=== PATIENT | male | born 1970 | race Caucasian/White ===

== ENCOUNTER 2016-11-13 17:27 | Inpatient (IN) | payer MEDICAID ==
[~2016-11-13] VITALS: Ht 182.9 cm; Wt 108.2 kg
[~2016-11-13 17:27] MED LIST: COLC0.6T69 PO; LURA40 PO; MIRT15 PO; PRED20 PO; TAMS0.4C32 PO
[2016-11-13] MEDS ORDERED: INFLUENZA VIRUS VACCINE QVS 2016-17 (3YR+)/PF 60 MCG/0.5 ML SYRINGE IM ONE (18:00)
[2016-11-13 18:33] VITALS: BP 113/76
[2016-11-13 19:00] VITALS: BP 131/87
[2016-11-13] MEDS: NAPROXEN 500 MG TABLET PO PRN (20:18)
[2016-11-14 00:16] VITALS: BP 129/87
[2016-11-14] MEDS: NAPROXEN 500 MG TABLET PO PRN (01:22)
[2016-11-14 08:05] VITALS: BP 130/88
[2016-11-14] MEDS ORDERED: ONDANSETRON HCL 4 MG TABLET PO PRN (08:45)
[2016-11-14] MEDS ORDERED: MAG HYDROX/AL HYDROX/SIMETH ES 30 ML SUSPENSION UDCUP PO PRN (08:45)
[2016-11-14] MEDS ORDERED: CloNIDine HCL 0.1 MG TABLET PO PRN (08:45)
[2016-11-14] MEDS ORDERED: ALBUTEROL SULFATE HFA 90 MCG/PUFF 8 GM INHALER IH PRN (08:45)
[2016-11-14] MEDS ORDERED: MAGNESIUM HYDROXIDE SUSPENSION 30 ML UDCUP PO PRN (08:45)
[2016-11-14] MEDS ORDERED: BENZOCAINE/MENTHOL LOZENGE MM PRN (08:45)
[2016-11-14] MEDS ORDERED: IBUPROFEN 600 MG TABLET PO PRN (08:45)
[2016-11-14] MEDS ORDERED: PETROLATUM,WHITE 71 GM JELLY TP PRN (08:45)
[2016-11-14] MEDS ORDERED: LOPERAMIDE HCL 2 MG CAPSULE PO PRN (08:45)
[2016-11-14] MEDS ORDERED: ACETAMINOPHEN 325 MG TABLET PO PRN (08:45)
[2016-11-14] MEDS ORDERED: BACITRACIN 28.4 GM OINTMENT TP PRN (08:45)
[2016-11-14] MEDS: TAMSULOSIN HCL 0.4 MG CAPSULE PO SCH (09:00)
[2016-11-14 11:18] VITALS: BP 126/84
[2016-11-14] MEDS: HYDROCODONE/ACETAMINOPHEN 5-325 MG TABLET PO PRN (11:18)
[2016-11-14] MEDS: COLCHICINE 0.6 MG TABLET PO SCH (12:58)
[2016-11-15] MEDS: TAMSULOSIN HCL 0.4 MG CAPSULE PO SCH (09:00)
[2016-11-15] MEDS: COLCHICINE 0.6 MG TABLET PO SCH (09:00)
[2016-11-15] MEDS: FLUoxetine HCL 20 MG CAPSULE PO SCH (11:00)
[2016-11-15] MEDS ORDERED: HYDR-309 PO (15:52)
[2016-11-15] MEDS ORDERED: FLUO-191 PO (15:52)
[2016-11-15 18:47] LABS: APPEARANCE,URINE CLEAR (CLEAR); GLUCOSE, URINE (UA) NEGATIVE (NEGATIVE); KETONES,URINE NEGATIVE (NEGATIVE); LEUKOCYTE ESTERASE ,URINE NEGATIVE (NEGATIVE); OCCULT BLOOD,URINE NEGATIVE (NEGATIVE); PH,URINE 6.5 (5.0-8.0); PROTEIN,URINE NEGATIVE (NEGATIVE)
[2016-11-15 18:48] LABS: ADD UA MICROSCOPIC NO
[2016-11-15] MEDS: OLANZapine 5 MG TABLET PO SCH (21:00)
[2016-11-15] MEDS ORDERED: OLANZapine 5 MG TABLET ONE (23:35)
[2016-11-15] MEDS ORDERED: FLUoxetine HCL 20 MG CAPSULE ONE (23:35)
[2016-11-16 07:24] VITALS: BP 118/75
[2016-11-16 09:50] VITALS: BP 124/82
[2016-11-16] MEDS: PredniSONE 20 MG TABLET PO SCH ×3 (09:51→16:31)
[2016-11-16] MEDS: COLCHICINE 0.6 MG TABLET PO SCH (09:52)
[2016-11-16] MEDS: HYDROCODONE/ACETAMINOPHEN 5-325 MG TABLET PO PRN (09:52)
[2016-11-16] MEDS: DOXYCYCLINE 100 MG CAPSULE PO SCH ×2 (09:52→16:31)
[2016-11-16] MEDS: TAMSULOSIN HCL 0.4 MG CAPSULE PO SCH (09:52)
[2016-11-16] MEDS: FLUoxetine HCL 20 MG CAPSULE PO SCH (09:52)
[2016-11-16 10:52] VITALS: BP 119/76
[2016-11-16 16:00] VITALS: BP 130/64
[2016-11-16] MEDS: LORazepam 2 MG TABLET PO PRN (16:31)
[2016-11-16] MEDS: OLANZapine 5 MG TABLET PO SCH (20:34)
[2016-11-16] MEDS: ZOLPIDEM TARTRATE 10 MG TABLET PO PRN (21:01)
[2016-11-17 08:04] VITALS: BP 112/77
[2016-11-17] MEDS: TAMSULOSIN HCL 0.4 MG CAPSULE PO SCH (09:00)
[2016-11-17] MEDS: COLCHICINE 0.6 MG TABLET PO SCH (09:00)
[2016-11-17] MEDS: DOXYCYCLINE 100 MG CAPSULE PO SCH ×2 (09:28→17:06)
[2016-11-17] MEDS: PredniSONE 20 MG TABLET PO SCH ×3 (09:29→17:06)
[2016-11-17] MEDS: FLUoxetine HCL 20 MG CAPSULE PO SCH (09:29)
[2016-11-17] MEDS: LORazepam 2 MG TABLET PO PRN ×2 (09:29→17:06)
[2016-11-17] MEDS: ZOLPIDEM TARTRATE 10 MG TABLET PO PRN (20:27)
[2016-11-17] MEDS: OLANZapine 5 MG TABLET PO SCH (20:27)
[2016-11-18] VITALS (8 sets, daily range): BP systolic 108–116; BP diastolic 60–81
[2016-11-18] MEDS: HYDROCODONE/ACETAMINOPHEN 5-325 MG TABLET PO PRN ×2 (08:51→16:35)
[2016-11-18] MEDS: FLUoxetine HCL 20 MG CAPSULE PO SCH (08:51)
[2016-11-18] MEDS: DOXYCYCLINE 100 MG CAPSULE PO SCH ×2 (08:51→16:35)
[2016-11-18] MEDS: NAPROXEN 500 MG TABLET PO PRN (11:56)
[2016-11-18] MEDS: LORazepam 2 MG TABLET PO PRN (16:35)
[2016-11-18] MEDS ORDERED: LORazepam 2 MG/ML VIAL IM ONE (18:30)
[2016-11-18] MEDS ORDERED: HALOPERIDOL LACTATE 5 MG/ML VIAL IM ONE (18:30)
[2016-11-18] MEDS: OLANZapine 5 MG TABLET PO SCH (21:00)
[2016-11-19 06:57] VITALS: BP 113/70
[2016-11-19 08:04] VITALS: BP 124/76
[2016-11-19] MEDS: FLUoxetine HCL 20 MG CAPSULE PO SCH (08:42)
[2016-11-19] MEDS: DOXYCYCLINE 100 MG CAPSULE PO SCH (08:42)
[2016-11-19] MEDS ORDERED: OLAN5TAB2 PO (13:53)
== END 2016-11-19 14:44 | disposition home or self-care (01) | DRG 750 ==
LOC: B2S 18:26 → EDSTATUS 18:49 → B2S 11-14 11:29 → B3A 11-16 00:30
PROVIDERS: ADMIT Psychiatry & Neurology Child & Adolescent Psychiatry; ATTEND Psychiatry & Neurology Child & Adolescent Psychiatry
DX: F25.0 Schizoaffective disorder, bipolar type (principal); R45.851 Suicidal ideations; F15.20 Other stimulant dependence, uncomplicated; E55.9 Vitamin D deficiency, unspecified; F17.200 Nicotine dependence, unspecified, uncomplicated; G89.29 Other chronic pain; J44.9 Chronic obstructive pulmonary disease, unspecified; F60.3 Borderline personality disorder; K21.9 Gastro-esophageal reflux disease without esophagitis; M10.9 Gout, unspecified; M19.90 Unspecified osteoarthritis, unspecified site; N40.0 Benign prostatic hyperplasia without lower urinary tract symptoms; Z59.0 Homelessness; Z81.8 Family history of other mental and behavioral disorders; Z88.2 Allergy status to sulfonamides; Z71.51 Drug abuse counseling and surveillance of drug abuser; Z71.6 Tobacco abuse counseling; Z91.041 Radiographic dye allergy status; Z28.21 Immunization not carried out because of patient refusal
CPT/HCPCS: J1630; J2060

== ENCOUNTER 2017-02-08 20:17 | Inpatient (IN) | payer MEDICAID ==
[~2017-02-08] VITALS: Ht 182.9 cm; Wt 103.4 kg
[~2017-02-08 20:17] MED LIST changes: -COLC0.6T69 PO; +FLUO-191 PO; -LURA40 PO; -MIRT15 PO; +OLAN5TAB2 PO; -PRED20 PO; -TAMS0.4C32 PO
[2017-02-08 20:56] LABS: BASOPHILS # (AUTO) 0.04 K/uL (0.00-0.20); BASOPHILS % (AUTO) 0.5 % (0.0-2.0); EOSINOPHILS # (AUTO) 0.38 K/uL (0.00-0.70); EOSINOPHILS % (AUTO) 5.08 % (1.0-6.0); HEMOGLOBIN 13.4 g/dL (13.5-17.5); LYMPHOCYTES # (AUTO) 1.9 K/uL (1.0-4.8); LYMPHOCYTES % (AUTO) 24.7 % (22.0-44.0); MEAN CORPUSCULAR HEMOGLOBIN 27.8 pg (26.0-34.0); MEAN CORPUSCULAR HGB CONC 33.5 G/dL (31.0-37.0); MEAN CORPUSCULAR VOLUME 83 fL (80-100); MONOCYTES # (AUTO) 0.6 K/uL (0.1-1.0); MONOCYTES % (AUTO) 7.8 % (2.0-9.0); NEUTROPHILS # (AUTO) 4.6 K/uL (1.8-7.7); NEUTROPHILS % (AUTO) 61.8 % (40.0-70.0); PLATELET COUNT (AUTO) 459 K/uL (150-450); RED BLOOD CELL COUNT(AUTO) 4.82 MIL/uL (4.50-5.90); RED CELL DISTRIBUTION WIDTH 15.3 % (11.5-14.5); WHITE BLOOD COUNT (AUTO) 7.5 K/uL (4.5-11.0)
[2017-02-08 21:05] LABS: ANION GAP 8 mmol/L (8-16); CALCIUM, TOTAL 8.8 mg/dL (8.8-10.5); CARBON DIOXIDE 29 mmol/L (22-29); CHLORIDE 104 mmol/L (98-107); CREATININE 0.89 mg/dL (0.60-1.30); GLOMERULAR FILTR. RATE CALC > 60 mL/min (>60); POTASSIUM 3.8 mmol/L (3.5-5.1); SODIUM SERUM 141 mmol/L (136-145); UREA NITROGEN, BLOOD 12 mg/dL (7-18)
[2017-02-08 21:11] LABS: ALANINE AMINOTRANSFERASE 20 U/L (12-78); ALBUMIN 3.5 g/dL (3.4-5.0); ASPARTATE AMINOTRANSFERASE 20 U/L (15-37); TOTAL PROTEIN, SERUM 7.2 g/dL (6.4-8.2)
[2017-02-09] MEDS ORDERED: HALOPERIDOL 5 MG TABLET PO PRN (02:15)
[2017-02-09 14:23] VITALS: BP 135/76
[2017-02-09] MEDS ORDERED: -PHARMACY VACCINE NOTE- MISC ONE ×2 (14:45)
[2017-02-09] MEDS: NICOTINE 21 MG/24 HOUR PATCH TD SCH (15:06)
[2017-02-09 16:17] VITALS: BP 119/62
[2017-02-10 07:21] VITALS: BP 137/87
[2017-02-10 08:32] VITALS: BP 134/89
[2017-02-10] MEDS: NICOTINE 21 MG/24 HOUR PATCH TD SCH (08:52)
[2017-02-10] MEDS: LORazepam 2 MG TABLET PO PRN (11:46)
[2017-02-10] MEDS: FLUoxetine HCL 20 MG CAPSULE PO SCH (12:41)
[2017-02-10 16:14] VITALS: BP 135/77
[2017-02-10] MEDS: OLANZapine 5 MG TABLET PO SCH (20:50)
[2017-02-10] MEDS: ZOLPIDEM TARTRATE 10 MG TABLET PO PRN (21:14)
[2017-02-10] MEDS ORDERED: MAG HYDROX/AL HYDROX/SIMETH ES 30 ML SUSPENSION UDCUP PO PRN (22:00)
[2017-02-10] MEDS ORDERED: ONDANSETRON HCL 4 MG TABLET PO PRN (22:00)
[2017-02-10] MEDS ORDERED: BENZOCAINE/MENTHOL LOZENGE MM PRN (22:00)
[2017-02-10] MEDS ORDERED: LOPERAMIDE HCL 2 MG CAPSULE PO PRN (22:00)
[2017-02-10] MEDS ORDERED: TRIAMCINOLONE 0.1% 15 GM OINTMENT TP PRN (22:00)
[2017-02-10] MEDS ORDERED: ALBUTEROL SULFATE HFA 90 MCG/PUFF 8 GM INHALER IH PRN (22:00)
[2017-02-10] MEDS ORDERED: PETROLATUM,WHITE 71 GM JELLY TP PRN (22:00)
[2017-02-10] MEDS ORDERED: CloNIDine HCL 0.1 MG TABLET PO PRN (22:00)
[2017-02-10] MEDS ORDERED: BACITRACIN 28.4 GM OINTMENT TP PRN (22:00)
[2017-02-10] MEDS ORDERED: MAGNESIUM HYDROXIDE SUSPENSION 30 ML UDCUP PO PRN (22:00)
[2017-02-10] MEDS ORDERED: ACETAMINOPHEN 325 MG TABLET PO PRN (22:00)
[2017-02-11 06:30] VITALS: BP 130/75
[2017-02-11 08:35] VITALS: BP 120/77
[2017-02-11] MEDS: NICOTINE 21 MG/24 HOUR PATCH TD SCH (09:09)
[2017-02-11] MEDS: FLUoxetine HCL 20 MG CAPSULE PO SCH (09:09)
[2017-02-11] MEDS: CHOLECALCIFEROL (VIT D3) 1,000 UNITS TABLET PO SCH (09:09)
[2017-02-11] MEDS ORDERED: DICLOFENAC SODIUM 1% 100 GM GEL [2GM] TP PRN ×2 (09:15→19:00)
[2017-02-11 16:09] VITALS: BP 121/75
[2017-02-11] MEDS: IBUPROFEN 600 MG TABLET PO PRN (16:09)
[2017-02-11] MEDS: OLANZapine 5 MG TABLET PO SCH (20:28)
[2017-02-11] MEDS: PredniSONE 5 MG TABLET PO SCH (21:50)
[2017-02-12 08:38] VITALS: BP 124/70
[2017-02-12] MEDS: CHOLECALCIFEROL (VIT D3) 1,000 UNITS TABLET PO SCH (09:32)
[2017-02-12] MEDS: PredniSONE 5 MG TABLET PO SCH (09:32)
[2017-02-12] MEDS: NICOTINE 21 MG/24 HOUR PATCH TD SCH (09:32)
[2017-02-12] MEDS: FLUoxetine HCL 20 MG CAPSULE PO SCH (09:32)
[2017-02-12 16:41] VITALS: BP 146/78
[2017-02-12] MEDS: OLANZapine 5 MG TABLET PO SCH (21:00)
[2017-02-12] MEDS: ZOLPIDEM TARTRATE 10 MG TABLET PO PRN (21:13)
[2017-02-12 21:14] VITALS: BP 123/70
[2017-02-12] MEDS: IBUPROFEN 600 MG TABLET PO PRN (21:14)
[2017-02-13 00:10] VITALS: BP 119/68
[2017-02-13 08:44] VITALS: BP 132/76
[2017-02-13] MEDS: FLUoxetine HCL 20 MG CAPSULE PO SCH (09:12)
[2017-02-13] MEDS: CHOLECALCIFEROL (VIT D3) 1,000 UNITS TABLET PO SCH (09:13)
[2017-02-13] MEDS: NICOTINE 21 MG/24 HOUR PATCH TD SCH (09:13)
[2017-02-13] MEDS: PredniSONE 5 MG TABLET PO SCH (09:13)
[2017-02-13 16:16] VITALS: BP 130/93
[2017-02-13] MEDS: LORazepam 2 MG TABLET PO PRN (18:01)
[2017-02-13] MEDS: ZOLPIDEM TARTRATE 10 MG TABLET PO PRN (20:33)
[2017-02-13] MEDS: OLANZapine 5 MG TABLET PO SCH (20:33)
[2017-02-14 00:17] VITALS: BP 119/79
[2017-02-14] MEDS: FLUoxetine HCL 20 MG CAPSULE PO SCH (09:42)
[2017-02-14] MEDS: NICOTINE 21 MG/24 HOUR PATCH TD SCH (09:42)
[2017-02-14] MEDS: CHOLECALCIFEROL (VIT D3) 1,000 UNITS TABLET PO SCH (09:43)
[2017-02-14] MEDS: PredniSONE 5 MG TABLET PO SCH (09:43)
[2017-02-14 09:48] VITALS: BP 117/69
[2017-02-14] MEDS: IBUPROFEN 600 MG TABLET PO PRN (10:11)
[2017-02-14 10:31] VITALS: BP 121/64
[2017-02-14] MEDS: LORazepam 2 MG TABLET PO PRN (12:51)
[2017-02-14] MEDS ORDERED: TUBERCULIN, PURIFIED PROTEIN DERIVATIVE 5 TU/0.1 ML SYG ID ONE (14:15)
[2017-02-14 16:28] VITALS: BP 130/77
[2017-02-14] MEDS: OLANZapine 5 MG TABLET PO SCH (20:59)
[2017-02-14] MEDS: ZOLPIDEM TARTRATE 10 MG TABLET PO PRN (20:59)
[2017-02-15 08:34] VITALS: BP 119/72
[2017-02-15] MEDS: NICOTINE 21 MG/24 HOUR PATCH TD SCH (09:35)
[2017-02-15] MEDS: CHOLECALCIFEROL (VIT D3) 1,000 UNITS TABLET PO SCH (09:36)
[2017-02-15] MEDS: FLUoxetine HCL 20 MG CAPSULE PO SCH (09:36)
[2017-02-15] MEDS: PredniSONE 5 MG TABLET PO SCH (09:36)
[2017-02-15 16:27] VITALS: BP 139/81
[2017-02-15] MEDS: LORazepam 2 MG TABLET PO PRN (16:27)
[2017-02-15] MEDS ORDERED: PRED5 PO (19:43)
[2017-02-15] MEDS ORDERED: VITAD1000 PO (19:43)
[2017-02-15] MEDS: OLANZapine 5 MG TABLET PO SCH (20:06)
== END 2017-02-15 20:10 | disposition home or self-care (01) | DRG 750 ==
LOC: EMS 20:18 → B2S 02-09 12:39 → B3A 02-15 18:48
PROVIDERS: ADMIT Psychiatry & Neurology Child & Adolescent Psychiatry; ATTEND Psychiatry & Neurology Child & Adolescent Psychiatry
DX: F20.0 Paranoid schizophrenia (principal); E55.9 Vitamin D deficiency, unspecified; R45.851 Suicidal ideations; F25.0 Schizoaffective disorder, bipolar type; I10 Essential (primary) hypertension; J44.9 Chronic obstructive pulmonary disease, unspecified; F15.10 Other stimulant abuse, uncomplicated; M10.9 Gout, unspecified; F17.200 Nicotine dependence, unspecified, uncomplicated; G47.00 Insomnia, unspecified; L30.9 Dermatitis, unspecified; K21.9 Gastro-esophageal reflux disease without esophagitis; M79.641 Pain in right hand; R45.87 Impulsiveness; Z88.2 Allergy status to sulfonamides; Z79.899 Other long term (current) drug therapy; Z91.041 Radiographic dye allergy status; Z71.6 Tobacco abuse counseling
CPT/HCPCS: 99285; G0480

== ENCOUNTER 2017-11-10 18:44 | Inpatient (IN) | payer MEDICAID ==
[~2017-11-10] VITALS: Ht 182.9 cm; Wt 107.6 kg
[~2017-11-10 18:44] MED LIST changes: +PRED5 PO; +VITAD1000 PO
[2017-11-10] MEDS ORDERED: ZOLPIDEM TARTRATE 10 MG TABLET PO PRN (19:30)
[2017-11-10] MEDS ORDERED: HALOPERIDOL 5 MG TABLET PO PRN (19:30)
[2017-11-10] MEDS ORDERED: LORazepam 2 MG TABLET PO PRN (19:30)
[2017-11-10 19:34] VITALS: BP 138/89
[2017-11-10 20:13] VITALS: BP 136/83
[2017-11-10] MEDS ORDERED: IBUPROFEN 600 MG TABLET PO PRN (21:15)
[2017-11-10] MEDS ORDERED: ACETAMINOPHEN 325 MG TABLET PO PRN (21:15)
[2017-11-11 06:51] VITALS: BP 117/77
[2017-11-11] MEDS ORDERED: MAGNESIUM HYDROXIDE SUSPENSION 30 ML UDCUP PO PRN (07:15)
[2017-11-11] MEDS ORDERED: ALBUTEROL SULFATE HFA 90 MCG/PUFF 8 GM INHALER IH PRN (07:15)
[2017-11-11] MEDS ORDERED: BENZOCAINE/MENTHOL LOZENGE MM PRN (07:15)
[2017-11-11] MEDS ORDERED: CloNIDine HCL 0.1 MG TABLET PO PRN (07:15)
[2017-11-11] MEDS ORDERED: LOPERAMIDE HCL 2 MG CAPSULE PO PRN (07:15)
[2017-11-11] MEDS ORDERED: PETROLATUM,WHITE 71 GM JELLY TP PRN (07:15)
[2017-11-11] MEDS ORDERED: MAG HYDROX/AL HYDROX/SIMETH ES 30 ML SUSPENSION UDCUP PO PRN (07:15)
[2017-11-11] MEDS ORDERED: ONDANSETRON HCL 4 MG TABLET PO PRN (07:15)
[2017-11-11] MEDS ORDERED: BACITRACIN 28.4 GM OINTMENT TP PRN (07:15)
[2017-11-11 08:07] VITALS: BP 141/73
[2017-11-11] MEDS: PredniSONE 5 MG TABLET PO SCH (09:14)
[2017-11-11] MEDS: CHOLECALCIFEROL (VIT D3) 1,000 UNITS TABLET PO SCH (09:15)
[2017-11-11 18:46] VITALS: BP 135/79
[2017-11-11] MEDS ORDERED: OLANZapine 5 MG TABLET PO SCH (21:00)
[2017-11-12 07:54] LABS: BASOPHILS % (AUTO) 0.3 % (0.0-2.0); EOSINOPHILS % (AUTO) 2.3 % (1.0-6.0); HEMATOCRIT 45.2 % (41-53); HEMOGLOBIN 15.2 g/dL (13.5-17.5); LYMPHOCYTES # (AUTO) 1.4 K/uL (1.0-4.8); LYMPHOCYTES % (AUTO) 12.9 % (22.0-44.0); MEAN CORPUSCULAR HEMOGLOBIN 28.9 pg (26.0-34.0); MEAN CORPUSCULAR HGB CONC 33.6 G/dL (31.0-37.0); MEAN CORPUSCULAR VOLUME 86 fL (80-100); MONOCYTES # (AUTO) 0.7 K/uL (0.1-1.0); MONOCYTES % (AUTO) 6.7 % (2.0-9.0); NEUTROPHILS # (AUTO) 8.2 K/uL (1.8-7.7); NEUTROPHILS % (AUTO) 77.8 % (40.0-70.0); PLATELET COUNT (AUTO) 362 K/uL (150-450); RED BLOOD CELL COUNT(AUTO) 5.25 MIL/uL (4.50-5.90); RED CELL DISTRIBUTION WIDTH 14.5 % (11.5-14.5)
[2017-11-12 08:00] VITALS: BP 140/100
[2017-11-12 08:12] LABS: HEMOGLOBIN A1C 5.5 % (4.5-6.2)
[2017-11-12] MEDS: CHOLECALCIFEROL (VIT D3) 1,000 UNITS TABLET PO SCH (08:20)
[2017-11-12 08:30] LABS: ALANINE AMINOTRANSFERASE 38 U/L (12-78); ALBUMIN 3.5 g/dL (3.4-5.0); ALKALINE PHOSPHATASE 99 U/L (46-116); ANION GAP 3 mmol/L (8-16); ASPARTATE AMINOTRANSFERASE 27 U/L (15-37); BILIRUBIN,TOTAL 0.9 mg/dL (0.1-1.0); CALCIUM, TOTAL 8.6 mg/dL (8.8-10.5); CARBON DIOXIDE 32 mmol/L (22-29); CHLORIDE 100 mmol/L (98-107); CHOL/HDL RATIO 2.5 (4.2-7.3); CHOLESTEROL 95 mg/dL (131-200); CREATININE 0.96 mg/dL (0.60-1.30); FREE T4 (FREE THYROXINE) 0.92 ng/dL (0.76-1.46); GLOMERULAR FILTR. RATE CALC > 60 mL/min (>60); GLUCOSE,RANDOM 93 mg/dL (70-110); HDL CHOLESTEROL 38 mg/dL (40-60); LDL CHOL (CALC.) 40 mg/dL (0-130); SODIUM SERUM 135 mmol/L (136-145); THYROID STIMULATING HORMONE 0.84 uIU/mL (0.36-3.74); TRIGLYCERIDES 87 mg/dL (15-150); UREA NITROGEN, BLOOD 11 mg/dL (7-18)
[2017-11-12] MEDS ORDERED: FLUoxetine HCL 20 MG CAPSULE PO SCH (09:00)
[2017-11-12] MEDS: PredniSONE 5 MG TABLET PO SCH (09:17)
[2017-11-12] MEDS ORDERED: NICOTINE 21 MG/24 HOUR PATCH TD SCH (09:30)
== END 2017-11-12 11:30 | disposition home or self-care (01) | DRG 750 ==
LOC: B3A 19:21 → 3EC 11-11 17:20
DX: F25.1 Schizoaffective disorder, depressive type (principal); R45.851 Suicidal ideations; F11.20 Opioid dependence, uncomplicated; E55.9 Vitamin D deficiency, unspecified; F15.10 Other stimulant abuse, uncomplicated; F17.200 Nicotine dependence, unspecified, uncomplicated; G47.00 Insomnia, unspecified; E66.9 Obesity, unspecified; M84.441A Pathological fracture, right hand, initial encounter for fracture; J44.9 Chronic obstructive pulmonary disease, unspecified; M10.9 Gout, unspecified; Z88.2 Allergy status to sulfonamides; Z91.041 Radiographic dye allergy status
CPT/HCPCS: 83036; 84439; 84443

== ENCOUNTER 2017-11-11 15:32 | Emergency (ER) | payer MEDICAID ==
[~2017-11-11] VITALS: Ht 182.9 cm; Wt 107.7 kg
[2017-11-11] MEDS ORDERED: HYDROCODONE/ACETAMINOPHEN 5-325 MG TABLET PO ONE (16:00)
[2017-11-11 16:07] VITALS: BP 148/98
== END 2017-11-11 17:29 | disposition home or self-care (01) ==
LOC: EMS 15:34
DX: S62.316A Displaced fracture of base of fifth metacarpal bone, right hand, initial encounter for closed fracture (principal); F31.9 Bipolar disorder, unspecified; F20.9 Schizophrenia, unspecified; J44.9 Chronic obstructive pulmonary disease, unspecified; Z88.2 Allergy status to sulfonamides; Z88.8 Allergy status to other drugs, medicaments and biological substances; W22.8XXA Striking against or struck by other objects, initial encounter; Y93.89 Activity, other specified; Y92.89 Other specified places as the place of occurrence of the external cause; Y99.8 Other external cause status
CPT/HCPCS: 99283

== ENCOUNTER 2018-10-11 09:36 | Inpatient (IN) | payer MEDICAID ==
[~2018-10-11] VITALS: Ht 182.9 cm; Wt 123.2 kg
[~2018-10-11 09:36] MED LIST changes: -PRED5 PO; -VITAD1000 PO
[2018-10-11 10:17] VITALS: BP 125/75
[2018-10-11] MEDS ORDERED: ZOLPIDEM TARTRATE 10 MG TABLET PO PRN (10:30)
[2018-10-11] MEDS ORDERED: HALOPERIDOL 5 MG TABLET PO PRN (10:30)
[2018-10-11] MEDS ORDERED: LORazepam 2 MG TABLET PO PRN (10:30)
[2018-10-11] MEDS ORDERED: NAPR-58 PO (11:02)
[2018-10-11] MEDS ORDERED: ALLO100T PO (11:02)
[2018-10-11] MEDS ORDERED: ACETAMINOPHEN 325 MG TABLET PO PRN (13:45)
[2018-10-11] MEDS ORDERED: MAGNESIUM HYDROXIDE SUSPENSION 30 ML UDCUP PO PRN (13:45)
[2018-10-11] MEDS ORDERED: PETROLATUM,WHITE 71 GM JELLY TP PRN (13:45)
[2018-10-11] MEDS ORDERED: LOPERAMIDE HCL 2 MG CAPSULE PO PRN (13:45)
[2018-10-11] MEDS ORDERED: MAG HYDROX/AL HYDROX/SIMETH ES 30 ML SUSPENSION UDCUP PO PRN (13:45)
[2018-10-11 16:00] VITALS: BP 127/66
[2018-10-11] MEDS ORDERED: SERTRALINE HCL 50 MG TABLET PO SCH (21:00)
[2018-10-11] MEDS ORDERED: NAPROXEN 500 MG TABLET PO PRN (21:30)
[2018-10-11] MEDS ORDERED: NAPROXEN 250 MG TABLET PO PRN (21:30)
[2018-10-11 21:53] VITALS: BP 140/94
[2018-10-11] MEDS: IBUPROFEN 400 MG TABLET PO PRN (21:53)
[2018-10-12 06:21] VITALS: BP 132/71
[2018-10-12 08:38] VITALS: BP 128/70
[2018-10-12] MEDS ORDERED: ARIPiprazole 5 MG TABLET PO SCH (09:00)
[2018-10-12 16:00] VITALS: BP 148/91
[2018-10-12 16:45] VITALS: BP 125/88
[2018-10-12] MEDS: SERTRALINE HCL 100 MG TABLET PO SCH (21:18)
[2018-10-13 03:18] VITALS: BP 139/82
[2018-10-13 08:31] VITALS: BP 151/90
[2018-10-13] MEDS: ALLOPURINOL 300 MG TABLET PO SCH (08:59)
[2018-10-13] MEDS: ARIPiprazole 10 MG TABLET PO SCH (08:59)
[2018-10-13] MEDS: IBUPROFEN 400 MG TABLET PO PRN (09:06)
[2018-10-13 10:06] VITALS: BP 134/83
[2018-10-13 16:00] VITALS: BP 119/72
[2018-10-13] MEDS: SERTRALINE HCL 100 MG TABLET PO SCH (20:32)
[2018-10-14 07:10] VITALS: BP 120/82
[2018-10-14 08:26] VITALS: BP 123/80
[2018-10-14] MEDS: ARIPiprazole 10 MG TABLET PO SCH (09:13)
[2018-10-14] MEDS: ALLOPURINOL 300 MG TABLET PO SCH (09:13)
[2018-10-14 16:08] VITALS: BP 125/68
[2018-10-14] MEDS: NAPROXEN 500 MG TABLET PO SCH (16:19)
[2018-10-14] MEDS: SERTRALINE HCL 100 MG TABLET PO SCH (20:46)
[2018-10-15 05:54] VITALS: BP 118/64
[2018-10-15 08:40] LABS: BASOPHILS % (AUTO) 0.6 % (0.0-2.0); EOSINOPHILS % (AUTO) 3.9 % (1.0-6.0); HEMATOCRIT 49.5 % (41-53); HEMOGLOBIN 16.9 g/dL (13.5-17.5); LYMPHOCYTES # (AUTO) 1.8 K/uL (1.0-4.8); MEAN CORPUSCULAR HEMOGLOBIN 29.6 pg (26.0-34.0); MEAN CORPUSCULAR HGB CONC 34.1 G/dL (31.0-37.0); MEAN CORPUSCULAR VOLUME 87 fL (80-100); MONOCYTES # (AUTO) 0.9 K/uL (0.1-1.0); NEUTROPHILS # (AUTO) 6.2 K/uL (1.8-7.7); NEUTROPHILS % (AUTO) 66.5 % (40.0-70.0); PLATELET COUNT (AUTO) 401 K/uL (150-450); RED BLOOD CELL COUNT(AUTO) 5.71 MIL/uL (4.50-5.90)
[2018-10-15 08:48] VITALS: BP 122/73
[2018-10-15 08:48] LABS: HEMOGLOBIN A1C 5.1 % (4.5-6.2)
[2018-10-15 09:22] LABS: ALANINE AMINOTRANSFERASE 48 U/L (12-78); ALBUMIN 3.7 g/dL (3.4-5.0); ALKALINE PHOSPHATASE 80 U/L (46-116); ANION GAP 4 mmol/L (8-16); ASPARTATE AMINOTRANSFERASE 30 U/L (15-37); BILIRUBIN,TOTAL 0.8 mg/dL (0.1-1.0); CALCIUM, TOTAL 9.3 mg/dL (8.8-10.5); CARBON DIOXIDE 34 mmol/L (22-29); CHLORIDE 102 mmol/L (98-107); CHOL/HDL RATIO 4.4 (4.2-7.3); CHOLESTEROL 123 mg/dL (131-200); CREATININE 0.91 mg/dL (0.60-1.30); FREE T4 (FREE THYROXINE) 1.05 ng/dL (0.76-1.46); GLOMERULAR FILTR. RATE CALC > 60 mL/min (>60); GLUCOSE,RANDOM 79 mg/dL (70-110); HDL CHOLESTEROL 28 mg/dL (40-60); LDL CHOL (CALC.) 65 mg/dL (0-130); POTASSIUM 5.3 mmol/L (3.5-5.1); SODIUM SERUM 140 mmol/L (136-145); THYROID STIMULATING HORMONE 1.77 uIU/mL (0.36-3.74); TOTAL PROTEIN, SERUM 7.1 g/dL (6.4-8.2); TRIGLYCERIDES 149 mg/dL (15-150); UREA NITROGEN, BLOOD 14 mg/dL (7-18)
[2018-10-15] MEDS: ARIPiprazole 10 MG TABLET PO SCH (09:43)
[2018-10-15] MEDS: ALLOPURINOL 300 MG TABLET PO SCH (09:44)
[2018-10-15] MEDS: NAPROXEN 500 MG TABLET PO SCH ×2 (09:44→16:11)
[2018-10-15] MEDS ORDERED: DiphenhydrAMINE HCL 25 MG CAPSULE PO ONE (10:00)
[2018-10-15 16:06] VITALS: BP 154/85
[2018-10-15] MEDS: SERTRALINE HCL 100 MG TABLET PO SCH (20:11)
[2018-10-16] VITALS: BP 114/70
[2018-10-16] MEDS: NAPROXEN 500 MG TABLET PO SCH ×2 (06:37→17:28)
[2018-10-16 08:51] VITALS: BP 140/76
[2018-10-16 09:25] LABS: APPEARANCE,URINE CLEAR (CLEAR); BILIRUBIN,URINE NEGATIVE (NEGATIVE); GLUCOSE, URINE (UA) NEGATIVE (NEGATIVE); KETONES,URINE NEGATIVE (NEGATIVE); LEUKOCYTE ESTERASE ,URINE NEGATIVE (NEGATIVE); NITRATE,URINE NEGATIVE (NEGATIVE); OCCULT BLOOD,URINE NEGATIVE (NEGATIVE); PH,URINE 6.5 (5.0-8.0); PROTEIN,URINE NEGATIVE (NEGATIVE); UROBILINOGEN,URINE 0.2 mg/dL (<=1.0)
[2018-10-16 09:29] LABS: AMPHET/METH SCREEN,URINE NEGATIVE (NEGATIVE); BARBITURATE SCREEN, URINE NEGATIVE (NEGATIVE); BENZODIAZEPINES SCREEN,URINE NEGATIVE (NEGATIVE); CANNABINOID SCREEN,URINE NEGATIVE (NEGATIVE); COCAINE SCREEN,URINE NEGATIVE (NEGATIVE); METHADONE SCREEN, URINE NEGATIVE (NEGATIVE); OPIATE SCREEN,URINE NEGATIVE (NEGATIVE)
[2018-10-16 09:30] LABS: PHENCYCLIDINE SCREEN,URINE NEGATIVE (NEGATIVE)
[2018-10-16 09:54] VITALS: BP 136/82
[2018-10-16] MEDS: ARIPiprazole 10 MG TABLET PO SCH (09:58)
[2018-10-16] MEDS: ALLOPURINOL 300 MG TABLET PO SCH (09:58)
[2018-10-16] MEDS: SERTRALINE HCL 100 MG TABLET PO SCH ×2 (20:50→21:00)
[2018-10-17 02:18] VITALS: BP 128/83
[2018-10-17] MEDS: NAPROXEN 500 MG TABLET PO SCH ×2 (07:04→16:10)
[2018-10-17 08:16] VITALS: BP 128/64
[2018-10-17] MEDS: ALLOPURINOL 300 MG TABLET PO SCH (08:21)
[2018-10-17] MEDS: ARIPiprazole 10 MG TABLET PO SCH (08:23)
[2018-10-17 16:08] VITALS: BP 102/55
[2018-10-17] MEDS: SERTRALINE HCL 100 MG TABLET PO SCH (20:06)
[2018-10-18 00:56] VITALS: BP 140/79
[2018-10-18] MEDS: NAPROXEN 500 MG TABLET PO SCH (06:48)
[2018-10-18] MEDS: ALLOPURINOL 300 MG TABLET PO SCH (08:10)
[2018-10-18] MEDS: ARIPiprazole 10 MG TABLET PO SCH (08:11)
[2018-10-18 08:30] VITALS: BP 134/91
[2018-10-18] MEDS ORDERED: SERT100T12 PO (10:20)
[2018-10-18] MEDS ORDERED: ARIP10TA8 PO (10:20)
== END 2018-10-18 15:17 | disposition home or self-care (01) | DRG 750 ==
LOC: B2S 10:31
PROVIDERS: ADMIT Psychiatry & Neurology Psychiatry; ATTEND Psychiatry & Neurology Psychiatry
DX: F25.1 Schizoaffective disorder, depressive type (principal); E87.5 Hyperkalemia; R45.851 Suicidal ideations; F10.10 Alcohol abuse, uncomplicated; F15.90 Other stimulant use, unspecified, uncomplicated; F17.200 Nicotine dependence, unspecified, uncomplicated; F41.9 Anxiety disorder, unspecified; I10 Essential (primary) hypertension; J44.9 Chronic obstructive pulmonary disease, unspecified; M10.9 Gout, unspecified; M19.90 Unspecified osteoarthritis, unspecified site; Z59.0 Homelessness; Z81.8 Family history of other mental and behavioral disorders; Z91.19 Patient's noncompliance with other medical treatment and regimen; Z91.5 Personal history of self-harm; Z71.41 Alcohol abuse counseling and surveillance of alcoholic; Z71.6 Tobacco abuse counseling; Z71.51 Drug abuse counseling and surveillance of drug abuser; Z91.041 Radiographic dye allergy status; Z88.2 Allergy status to sulfonamides; Z79.899 Other long term (current) drug therapy
CPT/HCPCS: 80307; 83036; 84132; 84439; 84443

== ENCOUNTER 2019-03-04 19:53 | Emergency (ER) | payer MEDICAID ==
[~2019-03-04] VITALS: Ht 182.9 cm; Wt 104.5 kg
[~2019-03-04 19:53] MED LIST changes: +ALLO100T PO; +ARIP10TA8 PO; -FLUO-191 PO; +NAPR-58 PO; -OLAN5TAB2 PO; +SERT100T12 PO
[2019-03-04 20:40] LABS: BASOPHILS % (AUTO) 0.9 % (0.0-2.0); EOSINOPHILS % (AUTO) 3.1 % (1.0-6.0); HEMATOCRIT 40.7 % (41-53); HEMOGLOBIN 13.6 g/dL (13.5-17.5); LYMPHOCYTES # (AUTO) 2.2 K/uL (1.0-4.8); LYMPHOCYTES % (AUTO) 26.6 % (22.0-44.0); MEAN CORPUSCULAR HEMOGLOBIN 28.2 pg (26.0-34.0); MEAN CORPUSCULAR HGB CONC 33.4 G/dL (31.0-37.0); MEAN CORPUSCULAR VOLUME 84 fL (80-100); MONOCYTES # (AUTO) 0.6 K/uL (0.1-1.0); NEUTROPHILS # (AUTO) 5.2 K/uL (1.8-7.7); NEUTROPHILS % (AUTO) 62.4 % (40.0-70.0); PLATELET COUNT (AUTO) 688 K/uL (150-450); RED BLOOD CELL COUNT(AUTO) 4.84 MIL/uL (4.50-5.90); RED CELL DISTRIBUTION WIDTH 13.4 % (11.5-14.5)
[2019-03-04 20:50] LABS: ANION GAP 8 mmol/L (8-16); CALCIUM, TOTAL 9.1 mg/dL (8.8-10.5); CARBON DIOXIDE 31 mmol/L (22-29); CHLORIDE 105 mmol/L (98-107); CREATININE 1.02 mg/dL (0.60-1.30); GLOMERULAR FILTR. RATE CALC > 60 mL/min (>60); GLUCOSE,RANDOM 140 mg/dL (70-110); POTASSIUM 3.5 mmol/L (3.5-5.1); SODIUM SERUM 144 mmol/L (136-145); UREA NITROGEN, BLOOD 11 mg/dL (7-18)
[2019-03-04 20:52] LABS: AMPHET/METH SCREEN,URINE POSITIVE (NEGATIVE); BARBITURATE SCREEN, URINE NEGATIVE (NEGATIVE); BENZODIAZEPINES SCREEN,URINE NEGATIVE (NEGATIVE); CANNABINOID SCREEN,URINE NEGATIVE (NEGATIVE); COCAINE SCREEN,URINE NEGATIVE (NEGATIVE); METHADONE SCREEN, URINE NEGATIVE (NEGATIVE); OPIATE SCREEN,URINE NEGATIVE (NEGATIVE)
[2019-03-04 20:56] LABS: ALANINE AMINOTRANSFERASE 20 U/L (12-78); ALBUMIN 3.2 g/dL (3.4-5.0); ALKALINE PHOSPHATASE 90 U/L (46-116); ASPARTATE AMINOTRANSFERASE 16 U/L (15-37); BILIRUBIN,TOTAL 0.5 mg/dL (0.1-1.0); TOTAL PROTEIN, SERUM 7.3 g/dL (6.4-8.2)
[2019-03-04 21:10] LABS: PHENCYCLIDINE SCREEN,URINE NEGATIVE (NEGATIVE)
[2019-03-04] MEDS ORDERED: COLCHICINE 0.6 MG TABLET PO ONE (22:00)
[2019-03-04] MEDS ORDERED: NAPROXEN 250 MG TABLET PO ONE (22:00)
[2019-03-04] MEDS ORDERED: LORazepam 2 MG TABLET PO PRN (22:30)
[2019-03-04] MEDS ORDERED: ZOLPIDEM TARTRATE 10 MG TABLET PO PRN (22:30)
[2019-03-04] MEDS ORDERED: HALOPERIDOL 5 MG TABLET PO PRN (22:30)
[2019-03-05 08:07] VITALS: BP 122/79
== END 2019-03-05 05:38 | disposition short-term general hospital (02) ==
LOC: EMS 19:54
DX: F20.9 Schizophrenia, unspecified (principal); F15.10 Other stimulant abuse, uncomplicated; J44.9 Chronic obstructive pulmonary disease, unspecified; Z79.899 Other long term (current) drug therapy; Z88.2 Allergy status to sulfonamides; Z91.041 Radiographic dye allergy status
CPT/HCPCS: 36415; 80053; 80307; 85025; 99285; G0480

== ENCOUNTER 2019-07-30 13:25 | Emergency (ER) | payer MEDICAID ==
[~2019-07-30] VITALS: Ht 175.3 cm; Wt 81.8 kg
[~2019-07-30 13:25] MED LIST changes: -ALLO100T PO; +AMLO5TAB9 PO; -ARIP10TA8 PO; +BUPR-47 PO; +BUPR-93 PO; -NAPR-58 PO; -SERT100T12 PO
[2019-07-30] MEDS ORDERED: ACETAMINOPHEN 325 MG TABLET PO ONE (14:30)
[2019-07-30 14:55] VITALS: BP 131/89
== END 2019-07-30 15:56 | disposition home or self-care (01) ==
LOC: EMS 13:27
DX: M79.631 Pain in right forearm (principal); J44.9 Chronic obstructive pulmonary disease, unspecified; F17.210 Nicotine dependence, cigarettes, uncomplicated; F20.9 Schizophrenia, unspecified; Z88.2 Allergy status to sulfonamides; Z91.041 Radiographic dye allergy status; Z79.899 Other long term (current) drug therapy; W22.01XA Walked into wall, initial encounter; Y93.E1 Activity, personal bathing and showering; Y92.89 Other specified places as the place of occurrence of the external cause; Y99.8 Other external cause status
CPT/HCPCS: 99406

== ENCOUNTER 2023-09-22 00:37 | Inpatient (IN) | payer MEDICAID ==
[~2023-09-22] VITALS: Ht 182.9 cm; Wt 124.7 kg
[2023-09-22] VITALS (8 sets, daily range): BP systolic 131–153; BP diastolic 75–95; PULSE 70–88; RESP 16–20; TEMP 97–97.7; O2SAT 95–100
[~2023-09-22 00:37] MED LIST changes: +AMLO-257 PO; -AMLO5TAB9 PO; -BUPR-47 PO; +BUPR-49 PO; +BUPR-50 PO; -BUPR-93 PO
[2023-09-22 01:21] LABS: COVID AG,FIA SOURCE NASAL SWAB
[2023-09-22 01:23] LABS: BASOPHILS % (AUTO) 0.5 % (0.0-2.0); HEMATOCRIT 37.9 % (41-53); HEMOGLOBIN 12.9 g/dL (13.5-17.5); MONOCYTES # (AUTO) 1.5 K/uL (0.1-1.0)
[2023-09-22 01:26] LABS: PH,URINE DRUG SCREEN 6.5 (5.0-8.0)
[2023-09-22 01:31] LABS: EOSINOPHILS % (AUTO) 2.3 % (1.0-6.0); LYMPHOCYTES % (AUTO) 13.2 % (22.0-44.0); MEAN CORPUSCULAR VOLUME 85 fL (80-100); NEUTROPHILS # (AUTO) 11.4 K/uL (1.8-7.7); PLATELET COUNT (AUTO) 288 K/uL (150-450); RED BLOOD CELL COUNT(AUTO) 4.45 MIL/uL (4.50-5.90); RED CELL DISTRIBUTION WIDTH 14.1 % (11.5-14.5); WHITE BLOOD COUNT (AUTO) 15.3 K/uL (4.5-11.0)
[2023-09-22 01:32] LABS: AMPHET/METH SCREEN,URINE NEGATIVE (NEGATIVE); BARBITURATE SCREEN, URINE NEGATIVE (NEGATIVE); BENZODIAZEPINES SCREEN,URINE NEGATIVE (NEGATIVE); CANNABINOID SCREEN,URINE NEGATIVE (NEGATIVE); COCAINE SCREEN,URINE NEGATIVE (NEGATIVE); METHADONE SCREEN, URINE NEGATIVE (NEGATIVE); OPIATE SCREEN,URINE NEGATIVE (NEGATIVE); PHENCYCLIDINE SCREEN,URINE NEGATIVE (NEGATIVE)
[2023-09-22 01:34] LABS: ANION GAP 2 mmol/L (8-16); CALCIUM, TOTAL 8.5 mg/dL (8.8-10.5); CARBON DIOXIDE 35 mmol/L (22-29); CHLORIDE 103 mmol/L (98-107); CREATININE 0.97 mg/dL (0.60-1.30); GLOMERULAR FILTR. RATE CALC > 60 mL/min (>60); GLUCOSE,RANDOM 97 mg/dL (70-110); POTASSIUM 3.4 mmol/L (3.5-5.1); SODIUM SERUM 140 mmol/L (136-145); UREA NITROGEN, BLOOD 11 mg/dL (7-18)
[2023-09-22 01:37] LABS: ALCOHOL, URINE DRUG SCREEN NEGATIVE (NEGATIVE)
[2023-09-22 01:39] LABS: ALANINE AMINOTRANSFERASE 117 U/L (12-78); ALBUMIN 3.2 g/dL (3.4-5.0); ALKALINE PHOSPHATASE 82 U/L (46-116); ASPARTATE AMINOTRANSFERASE 75 U/L (15-37); BILIRUBIN,TOTAL 0.5 mg/dL (0.1-1.0); TOTAL PROTEIN, SERUM 6.7 g/dL (6.4-8.2)
[2023-09-22 01:43] LABS: SARS-COV2 (COVID) ANTIGEN,FIA Negative (Negative)
[2023-09-22 01:45] LABS: ALCOHOL, BLOOD (SERUM) < 3 mg/dL (0-10)
[2023-09-22 03:24] LABS: APPEARANCE,URINE CLEAR (CLEAR); BILIRUBIN,URINE NEGATIVE (NEGATIVE); COLOR,URINE LIGHT YELLOW (YELLOW); GLUCOSE, URINE (UA) TRACE mg/dL (NEGATIVE); KETONES,URINE NEGATIVE (NEGATIVE); LEUKOCYTE ESTERASE ,URINE NEGATIVE (NEGATIVE); NITRATE,URINE NEGATIVE (NEGATIVE); OCCULT BLOOD,URINE NEGATIVE (NEGATIVE); PH,URINE 6.5 (5.0-8.0); PROTEIN,URINE NEGATIVE (NEGATIVE); SPECIFIC GRAVITIY, URINE 1.013 (1.003-1.030); UROBILINOGEN,URINE <=1.0 mg/dL (<=1.0)
[2023-09-22] MEDS: LORazepam 2 MG TABLET PO PRN ×2 (05:28→15:51)
[2023-09-22] MEDS ORDERED: MAG HYDROX/ALUMINUM HYD/SIMETH ES 30 ML SUSPENSION UDCUP PO PRN ×2 (10:45→14:30)
[2023-09-22] MEDS ORDERED: MAGNESIUM HYDROXIDE SUSPENSION 30 ML UDCUP PO PRN (10:45)
[2023-09-22] MEDS ORDERED: TUBERCULIN, PURIFIED PROTEIN DERIVATIVE 5 TU/0.1 ML SYRINGE ID ONE (10:45)
[2023-09-22] MEDS ORDERED: PROMETHAZINE HCL 25 MG TABLET PO PRN (10:45)
[2023-09-22] MEDS ORDERED: GuaiFENesin/D-METHORPHAN [SUGAR-FREE] 200-20MG/10 ML SYRUP UDCUP PO PRN (10:45)
[2023-09-22] MEDS ORDERED: HydrOXYzine PAMOATE 50 MG CAPSULE PO PRN ×2 (10:45→14:30)
[2023-09-22] MEDS ORDERED: ACETAMINOPHEN 325 MG TABLET PO PRN (10:45)
[2023-09-22] MEDS ORDERED: CloNIDine HCL 0.1 MG TABLET PO PRN (14:30)
[2023-09-22] MEDS ORDERED: DULoxetine HCL 20 MG CAPSULE PO ONE (14:45)
[2023-09-22] MEDS ORDERED: PALIPERIDONE PALMITATE 234 MG/1.5 ML SYRINGE IM ONE (16:00)
[2023-09-22] MEDS: OLANZapine 5 MG RAPDIS TABLET PO PRN (16:27)
[2023-09-22] MEDS: CloNIDine HCL 0.1 MG TABLET PO SCH ×2 (17:02→22:00)
[2023-09-22] MEDS: GABAPENTIN 100 MG CAPSULE PO SCH ×2 (17:02→20:16)
[2023-09-22] MEDS: THIAMINE 100 MG TABLET PO SCH (17:02)
[2023-09-22] MEDS: MELATONIN 5 MG TABLET PO SCH (20:16)
[2023-09-22] MEDS: MIRTAZAPINE 15 MG TABLET PO SCH (20:16)
[2023-09-22] MEDS: DIVALPROEX SODIUM 500 MG ER TABLET PO SCH (20:16)
[2023-09-22] MEDS: OLANZapine 5 MG RAPDIS TABLET PO SCH (20:17)
[2023-09-22] MEDS ORDERED: PNEUMOCOCCAL VACCINE POLYVALENT 0.5 ML SYRINGE [PPSV23] IM. ONE (23:30)
[2023-09-22] MEDS ORDERED: INFLUENZA VIRUS VACCINE QVS 2023-24 (6MO+)/PF 60 MCG/0.5 ML SYRINGE IM. ONE (23:30)
[2023-09-23] VITALS (8 sets, daily range): BP systolic 114–144; BP diastolic 70–95; PULSE 79–103; RESP 18; TEMP 97.1–98.2; O2SAT 94–99
[2023-09-23] MEDS: CloNIDine HCL 0.1 MG TABLET PO SCH ×4 (06:28→20:26)
[2023-09-23] MEDS: THIAMINE 100 MG TABLET PO SCH ×2 (08:09→17:04)
[2023-09-23] MEDS: NALTREXONE HCL 50 MG TABLET PO SCH (08:09)
[2023-09-23] MEDS: MULTIVITAMINS WITH MINERALS, THERAPEUTIC TABLET PO SCH (08:09)
[2023-09-23] MEDS: OMEGA-3/DHA/EPA/FISH OIL 1,000 MG CAPSULE PO SCH (08:09)
[2023-09-23] MEDS: DULoxetine HCL 20 MG CAPSULE PO SCH (08:09)
[2023-09-23] MEDS: GABAPENTIN 100 MG CAPSULE PO SCH ×4 (08:10→20:27)
[2023-09-23] MEDS: FOLIC ACID 1 MG TABLET PO SCH (08:10)
[2023-09-23] MEDS: LORazepam 2 MG TABLET PO PRN ×3 (08:11→18:41)
[2023-09-23] MEDS ORDERED: POTASSIUM CHLORIDE 20 MEQ ER TABLET PO ONE ×2 (09:00→21:00)
[2023-09-23] MEDS: OLANZapine 5 MG RAPDIS TABLET PO SCH (20:25)
[2023-09-23] MEDS: MIRTAZAPINE 15 MG TABLET PO SCH (20:26)
[2023-09-23] MEDS: DIVALPROEX SODIUM 500 MG ER TABLET PO SCH (20:26)
[2023-09-23] MEDS: MELATONIN 5 MG TABLET PO SCH (20:27)
[2023-09-24 00:01] VITALS: RESP 18; TEMP 97.8
[2023-09-24] MEDS: LORazepam 2 MG TABLET PO PRN ×3 (04:07→22:02)
[2023-09-24 04:26] VITALS: BP 118/79; PULSE 87; RESP 17; TEMP 97.2; O2SAT 98
[2023-09-24] MEDS: CloNIDine HCL 0.1 MG TABLET PO SCH ×4 (05:37→21:13)
[2023-09-24] MEDS: GABAPENTIN 100 MG CAPSULE PO SCH ×4 (08:05→21:13)
[2023-09-24] MEDS: FOLIC ACID 1 MG TABLET PO SCH (08:05)
[2023-09-24] MEDS: DULoxetine HCL 20 MG CAPSULE PO SCH (08:06)
[2023-09-24] MEDS: THIAMINE 100 MG TABLET PO SCH ×2 (08:06→17:32)
[2023-09-24] MEDS: MULTIVITAMINS WITH MINERALS, THERAPEUTIC TABLET PO SCH (08:06)
[2023-09-24] MEDS: OMEGA-3/DHA/EPA/FISH OIL 1,000 MG CAPSULE PO SCH (08:06)
[2023-09-24] MEDS: NALTREXONE HCL 50 MG TABLET PO SCH (08:06)
[2023-09-24 08:10] VITALS: BP 120/76; PULSE 91; RESP 18; TEMP 98.6; O2SAT 100
[2023-09-24 08:17] LABS: BASOPHILS % (AUTO) 0.6 % (0.0-2.0); EOSINOPHILS % (AUTO) 2.4 % (1.0-6.0); HEMATOCRIT 38.4 % (41-53); HEMOGLOBIN 13.1 g/dL (13.5-17.5); LYMPHOCYTES # (AUTO) 1.8 K/uL (1.0-4.8); LYMPHOCYTES % (AUTO) 14.1 % (22.0-44.0); MEAN CORPUSCULAR HEMOGLOBIN 29.3 pg (26.0-34.0); MEAN CORPUSCULAR VOLUME 86 fL (80-100); MONOCYTES # (AUTO) 1.2 K/uL (0.1-1.0); MONOCYTES % (AUTO) 9.3 % (2.0-9.0); NEUTROPHILS # (AUTO) 9.2 K/uL (1.8-7.7); NEUTROPHILS % (AUTO) 73.6 % (40.0-70.0); PLATELET COUNT (AUTO) 313 K/uL (150-450); RED BLOOD CELL COUNT(AUTO) 4.46 MIL/uL (4.50-5.90); RED CELL DISTRIBUTION WIDTH 14.1 % (11.5-14.5); WHITE BLOOD COUNT (AUTO) 12.5 K/uL (4.5-11.0)
[2023-09-24 08:28] LABS: ANION GAP 6 mmol/L (8-16); CALCIUM, TOTAL 8.7 mg/dL (8.8-10.5); CARBON DIOXIDE 30 mmol/L (22-29); CHLORIDE 103 mmol/L (98-107); CREATININE 0.83 mg/dL (0.60-1.30); GLOMERULAR FILTR. RATE CALC > 60 mL/min (>60); GLUCOSE,RANDOM 92 mg/dL (70-110); POTASSIUM 3.6 mmol/L (3.5-5.1); SODIUM SERUM 139 mmol/L (136-145); UREA NITROGEN, BLOOD 12 mg/dL (7-18)
[2023-09-24 08:31] LABS: HEMOGLOBIN A1C 5.2 % (3.8-5.6)
[2023-09-24 08:46] LABS: CHOL/HDL RATIO 2.3 (4.2-7.3); FREE T4 (FREE THYROXINE) 1.47 ng/dL (0.76-1.46); THYROID STIMULATING HORMONE 1.32 uIU/mL (0.36-3.74)
[2023-09-24 17:30] VITALS: BP 112/72; PULSE 88; RESP 18; TEMP 98; O2SAT 99
[2023-09-24] MEDS: LOPERAMIDE HCL 2 MG CAPSULE PO PRN (18:25)
[2023-09-24 21:10] VITALS: BP 110/68; PULSE 80; RESP 18; TEMP 98.2; O2SAT 96
[2023-09-24] MEDS: OLANZapine 5 MG RAPDIS TABLET PO SCH (21:13)
[2023-09-24] MEDS: MELATONIN 5 MG TABLET PO SCH (21:13)
[2023-09-24] MEDS: DIVALPROEX SODIUM 500 MG ER TABLET PO SCH (21:13)
[2023-09-24] MEDS: MIRTAZAPINE 15 MG TABLET PO SCH (21:14)
[2023-09-24] MEDS: ZOLPIDEM TARTRATE 10 MG TABLET PO PRN (22:27)
[2023-09-25] MEDS: OLANZapine 5 MG RAPDIS TABLET PO PRN (00:30)
[2023-09-25] MEDS: CloNIDine HCL 0.1 MG TABLET PO SCH ×4 (06:25→20:23)
[2023-09-25] MEDS: LORazepam 2 MG TABLET PO PRN ×3 (06:25→23:10)
[2023-09-25 06:26] VITALS: BP 127/89; PULSE 92; RESP 18; TEMP 98; O2SAT 98
[2023-09-25] MEDS: IBUPROFEN 600 MG TABLET PO PRN (06:58)
[2023-09-25 08:06] LABS: HEPATITIS C AB (EIA) Non Reactive (Non Reactive)
[2023-09-25] MEDS: MULTIVITAMINS WITH MINERALS, THERAPEUTIC TABLET PO SCH (08:10)
[2023-09-25] MEDS: NALTREXONE HCL 50 MG TABLET PO SCH (08:10)
[2023-09-25] MEDS: DULoxetine HCL 20 MG CAPSULE PO SCH (08:10)
[2023-09-25] MEDS: FOLIC ACID 1 MG TABLET PO SCH (08:10)
[2023-09-25] MEDS: GABAPENTIN 100 MG CAPSULE PO SCH ×4 (08:10→20:23)
[2023-09-25] MEDS: THIAMINE 100 MG TABLET PO SCH ×2 (08:11→16:51)
[2023-09-25] MEDS: OMEGA-3/DHA/EPA/FISH OIL 1,000 MG CAPSULE PO SCH (08:11)
[2023-09-25 08:21] VITALS: BP 107/66; PULSE 100; RESP 17; TEMP 98.2; O2SAT 94
[2023-09-25] MEDS: MELATONIN 5 MG TABLET PO SCH (20:23)
[2023-09-25] MEDS: MIRTAZAPINE 15 MG TABLET PO SCH (20:23)
[2023-09-25] MEDS: OLANZapine 5 MG RAPDIS TABLET PO SCH (20:23)
[2023-09-25] MEDS: DIVALPROEX SODIUM 500 MG ER TABLET PO SCH (20:30)
[2023-09-25 23:02] VITALS: BP 110/62; PULSE 92; RESP 18; TEMP 97.8; O2SAT 97
[2023-09-26 06:48] VITALS: BP 112/65; PULSE 95; RESP 18; TEMP 98.3; O2SAT 97
[2023-09-26] MEDS: CloNIDine HCL 0.1 MG TABLET PO SCH ×4 (07:12→21:08)
[2023-09-26 08:12] VITALS: BP 114/80; PULSE 92; RESP 18; TEMP 98; O2SAT 95
[2023-09-26] MEDS: LOPERAMIDE HCL 2 MG CAPSULE PO PRN ×3 (08:39→23:43)
[2023-09-26] MEDS: FOLIC ACID 1 MG TABLET PO SCH (08:39)
[2023-09-26] MEDS: GABAPENTIN 100 MG CAPSULE PO SCH ×4 (08:39→20:24)
[2023-09-26] MEDS: MULTIVITAMINS WITH MINERALS, THERAPEUTIC TABLET PO SCH (08:39)
[2023-09-26] MEDS: THIAMINE 100 MG TABLET PO SCH ×2 (08:39→16:07)
[2023-09-26] MEDS: OMEGA-3/DHA/EPA/FISH OIL 1,000 MG CAPSULE PO SCH (08:39)
[2023-09-26] MEDS: NALTREXONE HCL 50 MG TABLET PO SCH (08:39)
[2023-09-26] MEDS: DULoxetine HCL 20 MG CAPSULE PO SCH (08:39)
[2023-09-26] MEDS ORDERED: PALIPERIDONE PALMITATE 156 MG/ML SYRINGE IM ONE (09:00)
[2023-09-26 20:16] VITALS: BP 130/80; PULSE 85; RESP 17; TEMP 98; O2SAT 96
[2023-09-26] MEDS: DIVALPROEX SODIUM 500 MG ER TABLET PO SCH (20:23)
[2023-09-26] MEDS: OLANZapine 5 MG RAPDIS TABLET PO SCH (20:23)
[2023-09-26] MEDS: MELATONIN 5 MG TABLET PO SCH (20:24)
[2023-09-26] MEDS: MIRTAZAPINE 15 MG TABLET PO SCH (20:24)
[2023-09-26] MEDS: LORazepam 2 MG TABLET PO PRN (23:43)
[2023-09-27] VITALS (13 sets, daily range): BP systolic 107–123; BP diastolic 66–85; PULSE 75–100; RESP 18–19; TEMP 97–98.5; O2SAT 96–100
[2023-09-27] MEDS: IBUPROFEN 600 MG TABLET PO PRN (01:29)
[2023-09-27] MEDS: ZOLPIDEM TARTRATE 10 MG TABLET PO PRN (01:29)
[2023-09-27] MEDS: CloNIDine HCL 0.1 MG TABLET PO SCH ×4 (06:19→21:52)
[2023-09-27 07:56] LABS: BASOPHILS % (AUTO) 0.3 % (0.0-2.0); EOSINOPHILS % (AUTO) 1.1 % (1.0-6.0); HEMATOCRIT 39.9 % (41-53); HEMOGLOBIN 13.7 g/dL (13.5-17.5); LYMPHOCYTES # (AUTO) 2.1 K/uL (1.0-4.8); LYMPHOCYTES % (AUTO) 14.8 % (22.0-44.0); MEAN CORPUSCULAR HEMOGLOBIN 29.4 pg (26.0-34.0); MEAN CORPUSCULAR HGB CONC 34.3 G/dL (31.0-37.0); MEAN CORPUSCULAR VOLUME 86 fL (80-100); MONOCYTES # (AUTO) 1.4 K/uL (0.1-1.0); MONOCYTES % (AUTO) 10.3 % (2.0-9.0); NEUTROPHILS # (AUTO) 10.3 K/uL (1.8-7.7); NEUTROPHILS % (AUTO) 73.5 % (40.0-70.0); PLATELET COUNT (AUTO) 360 K/uL (150-450); RED BLOOD CELL COUNT(AUTO) 4.65 MIL/uL (4.50-5.90)
[2023-09-27] MEDS: NAPROXEN 250 MG TABLET PO PRN ×2 (08:05→14:21)
[2023-09-27] MEDS: COLCHICINE 0.6 MG TABLET PO PRN ×3 (08:06→21:52)
[2023-09-27] MEDS: THIAMINE 100 MG TABLET PO SCH ×2 (08:48→16:37)
[2023-09-27] MEDS: NALTREXONE HCL 50 MG TABLET PO SCH (08:48)
[2023-09-27] MEDS: FOLIC ACID 1 MG TABLET PO SCH (08:48)
[2023-09-27] MEDS: DULoxetine HCL 20 MG CAPSULE PO SCH (08:48)
[2023-09-27] MEDS: MULTIVITAMINS WITH MINERALS, THERAPEUTIC TABLET PO SCH (08:48)
[2023-09-27] MEDS: OMEGA-3/DHA/EPA/FISH OIL 1,000 MG CAPSULE PO SCH (08:48)
[2023-09-27] MEDS: GABAPENTIN 100 MG CAPSULE PO SCH ×4 (08:49→20:29)
[2023-09-27] MEDS: LOPERAMIDE HCL 2 MG CAPSULE PO PRN (17:34)
[2023-09-27] MEDS: MIRTAZAPINE 15 MG TABLET PO SCH (20:29)
[2023-09-27] MEDS: OLANZapine 5 MG RAPDIS TABLET PO SCH (20:29)
[2023-09-27] MEDS: MELATONIN 5 MG TABLET PO SCH (20:29)
[2023-09-27] MEDS: DIVALPROEX SODIUM 500 MG ER TABLET PO SCH (20:29)
[2023-09-27] MEDS ORDERED: QUEtiapine FUMARATE 50 MG ER TABLET PO SCH (21:00)
[2023-09-28] VITALS (7 sets, daily range): BP systolic 107–128; BP diastolic 56–86; PULSE 18–89; RESP 16–18; TEMP 97.3–97.8; O2SAT 94–96
[2023-09-28] MEDS: ZOLPIDEM TARTRATE 10 MG TABLET PO PRN (00:11)
[2023-09-28] MEDS: CloNIDine HCL 0.1 MG TABLET PO SCH ×4 (06:20→22:05)
[2023-09-28] MEDS: OMEGA-3/DHA/EPA/FISH OIL 1,000 MG CAPSULE PO SCH (09:05)
[2023-09-28] MEDS: NALTREXONE HCL 50 MG TABLET PO SCH (09:06)
[2023-09-28] MEDS: FOLIC ACID 1 MG TABLET PO SCH (09:06)
[2023-09-28] MEDS: THIAMINE 100 MG TABLET PO SCH ×2 (09:06→17:49)
[2023-09-28] MEDS: MULTIVITAMINS WITH MINERALS, THERAPEUTIC TABLET PO SCH (09:06)
[2023-09-28] MEDS: DULoxetine HCL 20 MG CAPSULE PO SCH (09:06)
[2023-09-28] MEDS: GABAPENTIN 100 MG CAPSULE PO SCH ×3 (09:06→12:44)
[2023-09-28] MEDS: LOPERAMIDE HCL 2 MG CAPSULE PO PRN (10:08)
[2023-09-28] MEDS: NAPROXEN 250 MG TABLET PO PRN ×2 (11:37→22:31)
[2023-09-28] MEDS: COLCHICINE 0.6 MG TABLET PO PRN (11:38)
[2023-09-28] MEDS: GABAPENTIN 300 MG CAPSULE PO SCH (18:34)
[2023-09-28] MEDS: MELATONIN 5 MG TABLET PO SCH (20:41)
[2023-09-28] MEDS: DIVALPROEX SODIUM 500 MG ER TABLET PO SCH (20:41)
[2023-09-28] MEDS: OLANZapine 5 MG RAPDIS TABLET PO SCH (20:41)
[2023-09-28] MEDS ORDERED: QUEtiapine FUMARATE 50 MG ER TABLET PO SCH (21:00)
[2023-09-29] MEDS: GABAPENTIN 300 MG CAPSULE PO SCH ×3 (00:14→12:00)
[2023-09-29] MEDS: ZOLPIDEM TARTRATE 10 MG TABLET PO PRN (00:14)
[2023-09-29] MEDS: LORazepam 2 MG TABLET PO PRN (00:14)
[2023-09-29] MEDS: CloNIDine HCL 0.1 MG TABLET PO SCH ×3 (06:00→16:08)
[2023-09-29 08:28] VITALS: BP 130/93; PULSE 83; RESP 19; TEMP 97.9; O2SAT 96
[2023-09-29] MEDS: OMEGA-3/DHA/EPA/FISH OIL 1,000 MG CAPSULE PO SCH (08:32)
[2023-09-29] MEDS: THIAMINE 100 MG TABLET PO SCH ×2 (08:33→16:08)
[2023-09-29] MEDS: FOLIC ACID 1 MG TABLET PO SCH (08:33)
[2023-09-29] MEDS: MULTIVITAMINS WITH MINERALS, THERAPEUTIC TABLET PO SCH (08:33)
[2023-09-29] MEDS: NALTREXONE HCL 50 MG TABLET PO SCH (08:33)
[2023-09-29] MEDS ORDERED: DULoxetine HCL 30 MG CAPSULE PO SCH (09:00)
[2023-09-29 16:06] VITALS: BP 133/86; PULSE 81; RESP 18; TEMP 97.6
[2023-09-29] MEDS ORDERED: ESZOPICLONE 3 MG TABLET PO PRN (16:15)
[2023-09-29] MEDS ORDERED: GABAPENTIN 300 MG CAPSULE PO PRN (16:15)
[2023-09-29] MEDS ORDERED: GABAPENTIN 400 MG CAPSULE PO SCH (17:00)
[2023-09-29] MEDS ORDERED: NALT50TA6 PO (17:50)
[2023-09-29] MEDS ORDERED: OMEG-135 PO (17:51)
[2023-09-29] MEDS ORDERED: DULO20CA71 PO (17:51)
[2023-09-29] MEDS ORDERED: QUET200T5 PO (17:52)
[2023-09-29] MEDS ORDERED: MELA5TAB40 PO (17:52)
[2023-09-29] MEDS ORDERED: QUEtiapine FUMARATE 200 MG ER TABLET PO SCH (21:00)
[2023-09-30] MEDS ORDERED: DULoxetine HCL 20 MG CAPSULE PO SCH (09:00)
== END 2023-09-29 18:25 | disposition home or self-care (01) | DRG 750 ==
LOC: EMS 00:38 → B3A 08:34 → B2S 09-25 17:58
PROVIDERS: ADMIT Psychiatry & Neurology Psychiatry; ATTEND Psychiatry & Neurology Psychiatry
PROC: GZHZZZZ Group Psychotherapy (ICD-10-PCS; principal; 2023-09-22)
PROC: GZ51ZZZ Individual Psychotherapy, Behavioral (ICD-10-PCS; 2023-09-22)
DX: F25.9 Schizoaffective disorder, unspecified (principal); Z91.148 Patient's other noncompliance with medication regimen for other reason; E66.9 Obesity, unspecified; M19.90 Unspecified osteoarthritis, unspecified site; M10.9 Gout, unspecified; F43.10 Post-traumatic stress disorder, unspecified; I10 Essential (primary) hypertension; F11.20 Opioid dependence, uncomplicated; F15.20 Other stimulant dependence, uncomplicated; F12.20 Cannabis dependence, uncomplicated; Z20.822 Contact with and (suspected) exposure to COVID-19; F17.210 Nicotine dependence, cigarettes, uncomplicated; J44.9 Chronic obstructive pulmonary disease, unspecified; Z55.9 Problems related to education and literacy, unspecified; Z59.9 Problem related to housing and economic circumstances, unspecified; Z63.9 Problem related to primary support group, unspecified; Z65.3 Problems related to other legal circumstances; Z88.2 Allergy status to sulfonamides; Z91.041 Radiographic dye allergy status; Z68.37 Body mass index [BMI] 37.0-37.9, adult; Z59.00 Homelessness unspecified
CPT/HCPCS: 80048; 80053; 80061; 80307; 81003; 83036; 84439; 84443; 85025; 86592; 86803; 87340; 90686; 90732; 99285; G0480; Q9967

== ENCOUNTER 2024-08-03 18:53 | Emergency (ER) | payer MEDICAID ==
[~2024-08-03] VITALS: Ht 182.9 cm; Wt 104.5 kg
[~2024-08-03 18:53] MED LIST changes: +ALLO-97 PO; +ALLO300T2 PO; -BUPR-49 PO; -BUPR-50 PO; +DIVA500T69 PO; +NALT50TA33 PO; +OLAN5TAB94 PO; +OMEG-135 PO; +VENL37.57 PO
[2024-08-03 19:26] VITALS: BP 137/91; PULSE 87; RESP 16; TEMP 97.8; O2SAT 98
[2024-08-03] MEDS: ACETAMINOPHEN/CODEINE 300-30 MG TABLET PO ONE (20:41)
[2024-08-03] MEDS: IBUPROFEN 600 MG TABLET PO ONE (20:41)
[2024-08-03] MEDS ORDERED: ACET-66 PO (21:36)
[2024-08-03] MEDS ORDERED: IBUP-1554 PO (21:36)
== END 2024-08-03 22:49 | disposition home or self-care (01) ==
LOC: EMS 18:53
DX: S13.9XXA Sprain of joints and ligaments of unspecified parts of neck, initial encounter (principal); S00.83XA Contusion of other part of head, initial encounter; F25.1 Schizoaffective disorder, depressive type; F41.9 Anxiety disorder, unspecified; J44.9 Chronic obstructive pulmonary disease, unspecified; F17.210 Nicotine dependence, cigarettes, uncomplicated; F15.90 Other stimulant use, unspecified, uncomplicated; Z88.2 Allergy status to sulfonamides; Z88.8 Allergy status to other drugs, medicaments and biological substances; Z59.00 Homelessness unspecified; X58.XXXA Exposure to other specified factors, initial encounter; Y93.89 Activity, other specified; Y92.89 Other specified places as the place of occurrence of the external cause; Y99.8 Other external cause status
CPT/HCPCS: 70450; 72125; 99284

== ENCOUNTER 2024-09-25 20:50 | Emergency (ER) | payer MEDICAID, OTHER ==
[~2024-09-25] VITALS: Ht 180.3 cm; Wt 104.5 kg
[~2024-09-25 20:50] MED LIST changes: +ACET-66 PO; +IBUP-1554 PO
[2024-09-25 21:02] VITALS: TEMP 98.4
[2024-09-25 22:11] LABS: BASOPHILS % (AUTO) 0.4 % (0.0-2.0); EOSINOPHILS % (AUTO) 3.6 % (1.0-6.0); HEMATOCRIT 38.7 % (41-53); HEMOGLOBIN 12.8 g/dL (13.5-17.5); LYMPHOCYTES # (AUTO) 2.3 K/uL (1.0-4.8); LYMPHOCYTES % (AUTO) 21.1 % (22.0-44.0); MEAN CORPUSCULAR HEMOGLOBIN 28.2 pg (26.0-34.0); MEAN CORPUSCULAR HGB CONC 33.1 G/dL (31.0-37.0); MEAN CORPUSCULAR VOLUME 85 fL (80-100); MONOCYTES # (AUTO) 0.9 K/uL (0.1-1.0); MONOCYTES % (AUTO) 8.3 % (2.0-9.0); NEUTROPHILS # (AUTO) 7.2 K/uL (1.8-7.7); NEUTROPHILS % (AUTO) 66.6 % (40.0-70.0); PLATELET COUNT (AUTO) 485 K/uL (150-450); RED BLOOD CELL COUNT(AUTO) 4.54 MIL/uL (4.50-5.90); RED CELL DISTRIBUTION WIDTH 14.6 % (11.5-14.5); WHITE BLOOD COUNT (AUTO) 10.8 K/uL (4.5-11.0)
[2024-09-25 22:15] LABS: APPEARANCE,URINE CLEAR (CLEAR); BILIRUBIN,URINE NEGATIVE (NEGATIVE); COLOR,URINE YELLOW (YELLOW); GLUCOSE, URINE (UA) NEGATIVE (NEGATIVE); KETONES,URINE NEGATIVE (NEGATIVE); LEUKOCYTE ESTERASE ,URINE NEGATIVE (NEGATIVE); NITRATE,URINE NEGATIVE (NEGATIVE); OCCULT BLOOD,URINE NEGATIVE (NEGATIVE); PH,URINE 5.5 (5.0-8.0); PROTEIN,URINE TRACE mg/dL (NEGATIVE); SPECIFIC GRAVITIY, URINE 1.023 (1.003-1.030); UROBILINOGEN,URINE <=1.0 mg/dL (<=1.0)
[2024-09-25 22:27] LABS: ANION GAP 7 mmol/L (8-16); CALCIUM, TOTAL 8.9 mg/dL (8.8-10.5); CARBON DIOXIDE 29 mmol/L (22-29); CHLORIDE 101 mmol/L (98-107); CREATININE 0.93 mg/dL (0.60-1.30); GLOMERULAR FILTR. RATE CALC > 60 mL/min (>60); GLUCOSE,RANDOM 89 mg/dL (70-110); POTASSIUM 4.1 mmol/L (3.5-5.1); SODIUM SERUM 137 mmol/L (136-145); UREA NITROGEN, BLOOD 18 mg/dL (7-18)
[2024-09-25 22:29] LABS: ALANINE AMINOTRANSFERASE 16 U/L (12-78); ALKALINE PHOSPHATASE 108 U/L (46-116); ASPARTATE AMINOTRANSFERASE 14 U/L (15-37); BILIRUBIN,TOTAL 0.4 mg/dL (0.1-1.0); LIPASE 30 U/L (16-77); TOTAL PROTEIN, SERUM 6.4 g/dL (6.4-8.2)
[2024-09-25 23:18] LABS: TROPONIN I-HIGH SENSITIVITY 6 ng/L (<76)
[2024-09-26] MEDS: QUEtiapine FUMARATE 100 MG TABLET PO ONE (01:05)
[2024-09-26] MEDS: LORazepam 1 MG TABLET PO ONE (01:05)
[2024-09-26 02:30] VITALS: BP 139/78; PULSE 90; RESP 15; O2SAT 100
[2024-09-26] MEDS ORDERED: ALLO300T2 PO (05:34)
== END 2024-09-26 06:18 | disposition short-term general hospital (02) ==
LOC: EMS 20:50
DX: F25.1 Schizoaffective disorder, depressive type (principal); F15.10 Other stimulant abuse, uncomplicated; F31.9 Bipolar disorder, unspecified; F41.9 Anxiety disorder, unspecified; J44.9 Chronic obstructive pulmonary disease, unspecified; I21.9 Acute myocardial infarction, unspecified; F17.210 Nicotine dependence, cigarettes, uncomplicated; Z88.2 Allergy status to sulfonamides; Z88.8 Allergy status to other drugs, medicaments and biological substances; Z91.041 Radiographic dye allergy status
CPT/HCPCS: 71045; 80048; 80076; 81003; 83690; 84484; 85025; 93005; 99285; 36415-L1; 36415-TC

== ENCOUNTER 2025-02-01 07:20 | Emergency (ER) | payer MEDICAID, OTHER ==
[~2025-02-01] VITALS: Ht 180.3 cm; Wt 97.7 kg
[~2025-02-01 07:20] MED LIST changes: -ALLO300T2 PO; -IBUP-1554 PO; +LURA80TA2 PO; -OMEG-135 PO; +OMEG100033 PO; +QUET25TA36 PO
[2025-02-01 08:15] VITALS: BP 148/97; PULSE 86; RESP 18; TEMP 98; O2SAT 97
[2025-02-01] MEDS: IBUPROFEN 600 MG TABLET PO ONE (08:25)
[2025-02-01] MEDS ORDERED: IBUP-1492 PO (08:33)
== END 2025-02-01 09:46 | disposition home or self-care (01) ==
LOC: EMS 07:27
DX: M10.9 Gout, unspecified (principal); M79.672 Pain in left foot; F25.9 Schizoaffective disorder, unspecified; F15.10 Other stimulant abuse, uncomplicated; I10 Essential (primary) hypertension; F41.9 Anxiety disorder, unspecified; Z88.2 Allergy status to sulfonamides; Z88.8 Allergy status to other drugs, medicaments and biological substances; Z91.041 Radiographic dye allergy status; Z79.899 Other long term (current) drug therapy
CPT/HCPCS: 99283